=== PATIENT | male | born 1990 | race Hispanic/Latino ===

== ENCOUNTER → 2017-11-23 | Outpatient (CLI) | payer MEDICARE ==
[~2017-11-23] MED LIST: BUSP10TA3 PO; CLON0.1T PO; FLUT15.88 NS; GABA-531 PO; LEVO5TAB13 PO; LORA-705 PO; MELA10TA2 PO; MELA5TAB14 PO; RISP0.5T19 PO; RISP1TAB26 PO; RISP1TAB89 PO; RISP2TAB22 PO
== END | disposition home or self-care (01) ==
LOC: OIH 07:49
PROVIDERS: ATTEND Internal Medicine Gastroenterology
DX: R10.32 Left lower quadrant pain (principal); Z98.2 Presence of cerebrospinal fluid drainage device
CPT/HCPCS: 74176

== ENCOUNTER 2018-02-02 09:13 | Day surgery (SDC) | payer MEDICARE ==
[~2018-02-02] VITALS: Ht 160 cm; Wt 48.3 kg
[~2018-02-02 09:13] MED LIST changes: -CLON0.1T PO; -FLUT15.88 NS; -LORA-705 PO; -MELA5TAB14 PO; -RISP1TAB89 PO; +SODIUM CHLORIDE 0.9% 1000ML 1,000 ML IV ONE
[2018-02-02 10:03] VITALS: BP 101/51
[2018-02-02] MEDS ORDERED: PROPOFOL 10 MG/ML 20ML VIAL IV ONE ×2 (11:23→11:41)
[2018-02-02 11:52] VITALS: BP 97/44
== END 2018-02-02 12:25 | disposition home or self-care (01) ==
LOC: ENDO 09:13 → DAH 09:13 → ENDO 12:25
PROVIDERS: ATTEND Internal Medicine Gastroenterology
DX: K57.30 Diverticulosis of large intestine without perforation or abscess without bleeding (principal); R10.13 Epigastric pain; Z68.34 Body mass index [BMI] 34.0-34.9, adult; Z90.5 Acquired absence of kidney; Z98.890 Other specified postprocedural states; Z79.899 Other long term (current) drug therapy
CPT/HCPCS: 43235; 45378; A4606; J2704 ×2; J7030